=== PATIENT | female | born 1955 | race Caucasian/White ===

== ENCOUNTER 2016-07-04 13:08 | Emergency (ER) | payer BC ==
[~2016-07-04] VITALS: Ht 162.6 cm; Wt 71.7 kg
[~2016-07-04 13:08] MED LIST: ALPR-411 PO; BNT10 PO; CALC500C70 PO; CLID5CAP PO; DILT120C68 PO; IBUP-1050 PO; LORA-741 PO; MULT-506 PO; OMEG10007 PO; ORPH100T PO; VITBC PO
[2016-07-04 13:10] VITALS: Ht 162.6 cm; Wt 71.7 kg
[2016-07-04] MEDS ORDERED: ADENOSINE IV SOLN 3 MG/ML 2 ML VIAL IV ONE ×2 (13:17→13:20)
[2016-07-04 13:20] VITALS: O2SAT 98
--- NOTE | 2016-07-04 13:32 | EMERGENCY ROOM VISIT NOTE ---
History Report prepared by Black: Hemalatha Santana Under the Supervision of: Dr. Bruno Pearson D.O. First contact with patient: 13:20 Chief Complaint: TACHYCARDIA Stated Complaint: HEART RACING AFTER DIZZY SPELL Nursing Triage Summary: Dizzy spell at work around 1140. Then heart started racing, about 160. Slight SOB and left shoulder pain. Has happened 2 years ago but it didnt last this long. History of Present Illness The patient is a 61 year old female who presents to the Emergency Room with complaints of sudden tachycardia that began around 1145 this morning. The patient states that she was at work today when she suddenly became dizzy. She states that she suddenly had the tachycardia following. The patient states that her dizzy spell felt that she would pass out with standing. She states that she tried taking her pulse, noting that she couldn't feel it at first, but states that she noticed that her heart was racing. 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 Today she notes chest pain radiating across her chest, left shoulder pain, and shortness of breath. She rates her discomfort as a 3/10 in severity. The patient additionally notes palpitations today. She denies anything this severe in the past, but states that a couple months ago she had a similar episode that subsided on it's own. The patient notes a history of hypertension noting that she is on Cardizem. She denies any history of PEs or DVTs. The patient denies any family history of WPW. She states that she drinks 3 caffeinated drinks per day, and denies any increase recently. The patient denies any drug or tobacco use, but notes that she drinks alcohol occasionally. Source of History: patient Onset: 1145 this morning Position: other (global) Symptom Intensity: 3/10 Quality: other (tachycardia) Timing: other (persistent) Associated Symptoms: + SOB, + chest pain Note: Associated Symptoms: dizziness, left shoulder pain, palpitations. Review of Systems See above for pertinent positives & negatives. A total of 10 systems reviewed and were otherwise negative. Past Medical & Surgical Medical Problems: (1) Hypertension Family History FH: cancer FH: gallbladder disease FHx: heart disease Hypertension Social History Smoking Status: Former Smoker Alcohol Use: none Drug Use: none Marital Status: Housing Status: lives with family Occupation Status: employed Current/Historical Medications Scheduled Aspirin (Aspirin Chewable), 81 MG PO DAILY Calcium/Vitamin D (Os-Rboert 500 Plus D), 1 TAB PO Q2D Chlordiazepoxide/Clidinium (Librax 5MG/2.5MG), 1 CAP PO Q6 Diltiazem Hcl Ext Rel (Tiazac), 120 MG PO DAILY Fish Oil (Enfield-3), 1 CAP PO DAILY Metoprolol Succinate (Toprol Xl), 1 TAB PO DAILY Multivitamin (Multivitamin), 1 TAB PO Q2D Orphenadrine Citrate (Norflex), 100 MG PO HS PRN Vitamin B Complex (Vitamin B Complex), 1 TABLET PO Q2D Scheduled PRN Alprazolam (Xanax), 0.25 MG PO DAILY PRN for as directed Dicyclomine Hcl (Bentyl *), 10 MG PO Q6 PRN Ibuprofen (Advil), 200 MG PO HS PRN Lorazepam (Ativan), 0.5 MG PO Q6H PRN for as directed Allergies Coded Allergies: Penicillins (Verified Allergy, Intermediate, HIVES, 07/04/16) Physical Exam Vital Signs Date Time Temp Pulse Resp B/P Pulse Ox O2 Delivery O2 Flow Rate FiO2 07/04/16 15:53 93 15 96 07/04/16 15:48 87 19 96 07/04/16 15:43 92 16 96 07/04/16 15:38 88 15 92 07/04/16 15:33 91 29 92 07/04/16 15:28 91 19 94 07/04/16 15:23 88 17 96 07/04/16 15:18 91 16 92 07/04/16 15:13 94 18 97 07/04/16 15:08 97 16 93 07/04/16 14:58 93 15 93 07/04/16 14:53 98 13 93 07/04/16 14:48 91 13 95 07/04/16 14:43 92 16 97 07/04/16 14:38 92 14 95 07/04/16 14:33 87 13 96 07/04/16 14:28 91 21 94 07/04/16 14:23 91 15 98 07/04/16 14:21 94 18 125/78 95 Room Air 07/04/16 14:20 125/78 07/04/16 14:13 93 13 07/04/16 14:08 89 15 07/04/16 14:03 87 9 07/04/16 13:58 90 10 07/04/16 13:53 87 17 97 07/04/16 13:48 89 27 97 07/04/16 13:43 89 15 124/85 95 07/04/16 13:38 91 19 99 07/04/16 13:33 95 29 07/04/16 13:30 94 18 133/84 98 Room Air 07/04/16 13:29 94 07/04/16 13:28 95 20 133/84 07/04/16 13:23 189 07/04/16 13:23 193 21 07/04/16 13:20 98 07/04/16 13:18 133/100 07/04/16 13:13 96 Room Air 07/04/16 13:10 36.3 180 18 127/94 96 Room Air Physical Exam GENERAL: Patient is well appearing and in no acute distress. HEENT: No acute trauma, normocephalic atraumatic, mucous membranes moist, no nasal congestion, no scleral icterus. NECK: No stridor, no adenopathy, no meningismus, trachea is midline. LUNGS: No dyspnea. Clear to auscultation and equal bilaterally. No wheeze, no rhonchi. HEART: Tachycardic rate and regular rhythm. No murmurs, rubs, gallops appreciated. ABDOMEN: Soft, nontender, bowel sounds positive, no masses appreciated, no peritonitis. BACK: No midline tenderness, no CVA tenderness EXTREMITIES: Normal motion all extremities, no cyanosis, no edema. NEUROLOGIC: Alert and oriented, no acute motor or sensory deficits, no focal weakness, cranial nerves grossly intact. SKIN: No rash, no jaundice, no diaphoresis. Medical Decision & Procedures ER Provider Diagnostic Interpretation: X ray results and stated below per my interpretation and radiologist interpretation. Other radiology results and stated below per my review and radiologist interpretation: CHEST 2 VIEWS ROUTINE CLINICAL HISTORY: Tachycardia, dizziness, cough. COMPARISON STUDY: 07/26/2013 FINDINGS: The cardiac and mediastinal contours are normal. There is no evidence of focal pulmonary consolidation. There is no evidence of failure. No pleural effusions are visualized.[ IMPRESSION: No active disease in the chest. Electronically signed by: Manuel Burk M.D. 07/04/2016 4:12 PM Dictated Date/Time: 07/04/2016 4:11 PM Laboratory Results 07/04/16 13:20 Red Blood Count 4.69, Mean Corpuscular Volume 92.3, Mean Corpuscular Hemoglobin 31.6, Mean Corpuscular Hemoglobin Concent 34.2, Mean Platelet Volume 10.0, Neutrophils (%) (Auto) 61.1, Lymphocytes (%) (Auto) 32.4, Monocytes (%) (Auto) 4.7, Eosinophils (%) (Auto) 1.0, Basophils (%) (Auto) 0.5, Neutrophils # (Auto) 6.46, Lymphocytes # (Auto) 3.43, Monocytes # (Auto) 0.50, Eosinophils # (Auto) 0.11, Basophils # (Auto) 0.05 07/04/16 13:20 Test 07/04/16 13:20 White Blood Count 10.58 K/uL (4.8-10.8) Red Blood Count 4.69 M/uL (4.2-5.4) Hemoglobin 14.8 g/dL (12.0-16.0) Hematocrit 43.3 % (37-47) Mean Corpuscular Volume 92.3 fL (80-100) Mean Corpuscular Hemoglobin 31.6 pg (25-34) Mean Corpuscular Hemoglobin Concent 34.2 g/dl (32-36) Platelet Count 314 K/uL (130-400) Mean Platelet Volume 10.0 fL (7.4-10.4) Neutrophils (%) (Auto) 61.1 % Lymphocytes (%) (Auto) 32.4 % Monocytes (%) (Auto) 4.7 % Eosinophils (%) (Auto) 1.0 % Basophils (%) (Auto) 0.5 % Neutrophils # (Auto) 6.46 K/uL (1.4-6.5) Lymphocytes # (Auto) 3.43 K/uL (1.2-3.4) Monocytes # (Auto) 0.50 K/uL (0.11-0.59) Eosinophils # (Auto) 0.11 K/uL (0-0.5) Basophils # (Auto) 0.05 K/uL (0-0.2) RDW Standard Deviation 43.3 fL (36.4-46.3) RDW Coefficient of Variation 12.9 % (11.5-14.5) Immature Granulocyte % (Auto) 0.3 % Immature Granulocyte # (Auto) 0.03 K/uL (0.00-0.02) Anion Gap 14.0 mmol/L (3-11) Est Creatinine Clear Calc Drug Dose 64.4 ml/min Estimated GFR () 81.6 Estimated GFR (Non- 70.4 BUN/Creatinine Ratio 24.7 (10-20) Calcium Level 9.7 mg/dl (8.5-10.1) Phosphorus Level 4.1 mg/dl (2.5-4.9) Magnesium Level 2.1 mg/dl (1.8-2.4) Total Bilirubin 0.6 mg/dl (0.2-1) Direct Bilirubin 0.1 mg/dl (0-0.2) Aspartate Amino Transf (AST/SGOT) 43 U/L (15-37) Alanine Aminotransferase (ALT/SGPT) 61 U/L (12-78) Alkaline Phosphatase 94 U/L (45-117) Troponin I 0.015 ng/ml (0-0.045) Total Protein 7.7 gm/dl (6.4-8.2) Albumin 4.5 gm/dl (3.4-5.0) Lipase 189 U/L (73-393) Thyroid Stimulating Hormone (TSH) 1.170 uIu/ml (0.300-4.500) Thyroxine (T4) 9.5 mcg/dl (4.5-10.9) Laboratory results as reviewed by me. Medications Administered Medications (Trade) Dose Ordered Sig/Nancy Route Start Time Stop Time Status Last Admin Dose Admin Adenosine 18 mg 18 mg STK-MED ONCE IV 07/04/16 13:17 07/04/16 13:19 DC 07/04/16 13:27 18 MG Sodium Chloride (Nss 1000ml) 1,000 ml @ 999 mls/hr Q1H1M ONCE IV 07/04/16 14:15 07/04/16 15:15 DC 07/04/16 13:20 999 MLS/HR ECG Indication: tachycardia Rate (beats per minute): 190 Rhythm: SVT Change: Repeat EKG: Normal Sinus Rhythm, 90 beats per minute, normal intervals, normal axis, no ST segment changes. ED Course 1317: The patient was evaluated in room A1. A complete history and physical exam was performed. 1320: Ordered Adenosine 6 mg IV. 1326: The adenosine was administered at this time. 1415: Ordered Sodium Chloride 1000 ml @ 999 mls/hr IV. 1435: I discussed the patients case with Dr. Sanford, Cardiology. He said that the patient can follow up with him as an outpatient. 1630: I reevaluated the patient and she is resting comfortably. I discussed the exam findings with her and I discussed the treatment plan. She verbalized complete understanding and agreement. She is ready to go home. Medical Decision Differential diagnosis: Etiologies such as cardiac ischemia, aortic dissection, pulmonary embolism, pneumonia, pneumothorax, musculoskeletal, infections, pericarditis, myocarditis , esophageal rupture, gastrointestinal, as well as others were entertained. Patient is a 61-year-old female with a significant past medical history for hypertension and palpitations which she was told they were PVCs. She presents today with sudden onset dizziness when she stood up from her desk and had sudden palpitations which continued until her presentation here. No family history of sudden cardiac , heart arrhythmia, nor SVT. She denies not smoke, does occasionally drinks alcohol, has approximately 3 caffeinated drinks a day, does not use illicit drugs nor sympathomimetics. Initial EKG revealed an SVT with a heart rate into the 180s to 190s, she was immediately treated with 6 mg of adenosine and had conversion into normal sinus rhythm. I discussed her case with Dr. Sanford of [facility] cardiology. He instructed me to have her follow-up with Dr. Holguin. Additionally I have started her on 25 mg Toprol-XL for palpitations. At the time of my evaluation and dictation the thyroid function test are still out standing, I have instructed her to follow up with her primary care provider regarding the results of these tests. Consults Time Called: 1430 Consulting Physician: Dr. Sanford, Cardiology Returned Call: [phone] I discussed the patients case with Dr. Sanford, Cardiology. He said that the patient can follow up with him as an outpatient. Impression Primary Impression: SVT (supraventricular tachycardia) Critical Care I have personally spent greater than 35 minutes of critical care time in the direct management of this patient. This includes bedside care, interpretation of diagnostic studies, and testing, discussion with consultants, patient, and family members, and other required patient management activities. This 35 minutes is in excess of all separately billable procedures. Scribe Attestation The scribe's documentation has been prepared under my direction and personally reviewed by me in its entirety. I confirm that the note above accurately reflects all work, treatment, procedures, and medical decision making performed by me. Departure Information Dispostion Home / Self-Care Prescriptions Metoprolol Succinate (TOPROL XL) 25 Mg Tabcr 1 TAB PO DAILY for 30 Days, #30 TAB 5 Refills Prov: Bruno Pearson, D.O. 07/04/16 Referrals Jeb Carolina M.D. (PCP) Forms HOME CARE DOCUMENTATION FORM, IMPORTANT VISIT INFORMATION, WORK / SCHOOL INSTRUCTIONS Patient Instructions Treatment for Supraventricular Tachycardia SVT, Understanding Supraventricular Tachycardia SVT Additional Instructions Follow-up with [facility] physician group cardiology for further evaluation and treatment of the SVT. Return for severe chest pain, shortness of breath, passing out, or any other concerns. You been given a prescription for metoprolol 25 mg extended release. This will treat hypertension as well as be used to prevent arrhythmias. Follow-up with her primary care doctor regarding the results of your thyroid function tests.
[2016-07-04] MEDS ORDERED: ASPCH81X PO (13:50)
[2016-07-04] MEDS ORDERED: SODIUM CHLORIDE 0.9% 1000ML 1,000 ML IV ONE (14:15)
[2016-07-04 14:22] LABS: BASO % 0.5 %; BASO ABS # 0.05 K/uL (0-0.2); COMPLETE YES; HEMATOCRIT 43.3 % (37-47); IG% 0.3 %; LYMPH % 32.4 %; LYMPH ABS # 3.43 K/uL (1.2-3.4); MEAN CELL VOLUME 92.3 fL (80-100); MEAN CORPUSCULAR HEMOGLOBIN 31.6 pg (25-34); MEAN CORPUSCULAR HGB CONC 34.2 g/dl (32-36); MONO % 4.7 %; NEUT % 61.1 %; PLATELET COUNT 314 K/uL (130-400); RED BLOOD COUNT 4.69 M/uL (4.2-5.4); WHITE BLOOD COUNT 10.58 K/uL (4.8-10.8)
[2016-07-04 14:29] LABS: BUN/CREATININE RATIO 24.7 (10-20); CALCIUM 9.7 mg/dl (8.5-10.1); CREATININE 0.88 mg/dl (0.60-1.20); MAGNESIUM 2.1 mg/dl (1.8-2.4); POTASSIUM 3.5 mmol/L (3.5-5.1)
[2016-07-04 14:32] LABS: PHOSPHORUS 4.1 mg/dl (2.5-4.9)
[2016-07-04] MEDS ORDERED: METO25TA3 PO (15:35)
--- NOTE | 2016-07-04 16:13 | DIAGNOSTIC IMAGING REPORT ---
CHEST 2 VIEWS ROUTINE CLINICAL HISTORY: Tachycardia, dizziness, cough. COMPARISON STUDY: 07/26/2013 FINDINGS: The cardiac and mediastinal contours are normal. There is no evidence of focal pulmonary consolidation. There is no evidence of failure. No pleural effusions are visualized.[ IMPRESSION: No active disease in the chest. Electronically signed by: Manuel Burk M.D. 07/04/2016 4:12 PM Dictated Date/Time: 07/04/2016 4:11 PM
[2016-07-04 16:14] LABS: THYROID STIMULATING HORMONE 1.17 uIu/ml (0.300-4.500)
[2016-07-04 17:03] VITALS: BP 125/78; PULSE 88; TEMP 36.3; O2SAT 96
== END 2016-07-04 17:05 | disposition home or self-care (01) ==
LOC: C.EDB 13:10
DX: I47.1 Supraventricular tachycardia (principal); I10 Essential (primary) hypertension; Z82.49 Family history of ischemic heart disease and other diseases of the circulatory system; Z87.891 Personal history of nicotine dependence; Z79.82 Long term (current) use of aspirin; Z79.899 Other long term (current) drug therapy

== ENCOUNTER → 2016-07-23 | Outpatient (CLI) | payer BC ==
[~2016-07-23] MED LIST changes: +ASPCH81X PO; +METO25TA3 PO
--- NOTE | 2016-07-23 16:53 | MAMMOGRAPHY REPORT ---
BILATERAL DIGITAL SCREENING MAMMOGRAM WITH CAD: 07/23/2016 TECHNIQUE: Current study was also evaluated with a Computer Aided Detection (CAD) system. Bilatera l CC and MLO views were obtained. COMPARISON: Comparison is made to exams dated: 07/19/2015 mammogram, 07/17/2014 mammogram, 07/08/2012 m ammogram, 07/02/2010 mammogram, 07/14/2013 mammogram, and 07/03/2011 mammogram - [facility] enter. BREAST COMPOSITION: The tissue of both breasts is heterogeneously dense, which may obscure small ma sses. FINDINGS: No suspicious masses, calcifications, or areas of architectural distortion are noted in e ither breast. There has been no significant interval change compared to prior exams. Scattered bilat eral benign-appearing calcifications are not significantly changed. Small benign-appearing mass in the right superior breast on the MLO view is stable. IMPRESSION: ACR BI-RADS CATEGORY 2: BENIGN There is no mammographic evidence of malignancy. A 1 year screening mammogram is recommended. The p atient will receive written notification of the results. Approximately 10% of breast cancers are not detected with mammography. A negative mammographic repor t should not delay biopsy if a clinically suggestive mass is present. Belinda Deras M.D. ah/:07/23/2016 16:48:29 [employer]: Melisa MCKEON)(M), [facility] letter sent: Normal 1/2 BI-RADS Code: ACR BI-RADS Category 2: Benign
== END | disposition home or self-care (01) ==
LOC: C.MAMM 16:25
PROVIDERS: ATTEND Obstetrics & Gynecology
DX: Z12.31 Encounter for screening mammogram for malignant neoplasm of breast (principal)

== ENCOUNTER → 2017-05-20 | Outpatient (CLI) | payer BC ==
[2017-05-20 15:39] LABS: BASO % 0.6 %; BASO ABS # 0.03 K/uL (0-0.2); COMPLETE YES; EOS % 1.7 %; HEMATOCRIT 42.9 % (37-47); IG% 0.2 %; LYMPH % 34.4 %; LYMPH ABS # 1.87 K/uL (1.2-3.4); MEAN CELL VOLUME 95.1 fL (80-100); MEAN CORPUSCULAR HEMOGLOBIN 31.7 pg (25-34); MEAN CORPUSCULAR HGB CONC 33.3 g/dl (32-36); MEAN PLATELET VOLUME 9.9 fL (7.4-10.4); MONO % 6.4 %; NEUT % 56.7 %; PLATELET COUNT 276 K/uL (130-400); RED BLOOD COUNT 4.51 M/uL (4.2-5.4); WHITE BLOOD COUNT 5.44 K/uL (4.8-10.8)
[2017-05-20 15:47] LABS: ALT/SGPT 42 U/L (12-78); BLOOD UREA NITROGEN 18 mg/dl (7-18); BUN/CREATININE RATIO 22.1 (10-20); CALCIUM 9.2 mg/dl (8.5-10.1); CARBON DIOXIDE 29 mmol/L (21-32); CHLORIDE 105 mmol/L (98-107); CHOLESTEROL 219 mg/dl (0-200); CREATININE 0.82 mg/dl (0.60-1.20); GLUCOSE 94 mg/dl (70-99); SODIUM 138 mmol/L (136-145); TRIGLYCERIDES 196 mg/dl (0-150); VERY LOW DENSITY LIPOPROT CALC 39 mg/dl
[2017-05-20 15:56] LABS: ALB/GLOB RATIO 1.4 (0.9-2); ALKALINE PHOSPHATASE 86 U/L (45-117); AST/SGOT 28 U/L (15-37); HDL CHOLESTEROL 73 mg/dl; LDL CHOLESTEROL CALCULATED 107 mg/dl
[2017-05-20 16:19] LABS: LYME DISEASE AB IGM NEG (NEG)
[2017-05-20 16:20] LABS: LYME DISEASE AB IGG NEG (NEG)
[2017-05-21 06:38] LABS: ESTIMATED AVERAGE GLUCOSE 117 mg/dl; HA1C FLAG Normal (Normal)
== END | disposition home or self-care (01) ==
LOC: C.LABBC 09:22
PROVIDERS: ATTEND Internal Medicine
DX: Z00.00 Encounter for general adult medical examination without abnormal findings (principal); K58.9 Irritable bowel syndrome, unspecified; I10 Essential (primary) hypertension; E78.5 Hyperlipidemia, unspecified; R73.01 Impaired fasting glucose; I47.1 Supraventricular tachycardia; E04.1 Nontoxic single thyroid nodule; Z11.59 Encounter for screening for other viral diseases; M79.1 Myalgia

== ENCOUNTER → 2017-07-29 | Outpatient (CLI) | payer BC ==
[~2017-07-29] MED LIST changes: -METO25TA3 PO; +METO25TA4 PO
--- NOTE | 2017-07-29 15:13 | MAMMOGRAPHY REPORT ---
BILATERAL DIGITAL SCREENING MAMMOGRAM TOMOSYNTHESIS WITH CAD: 07/29/2017 CLINICAL HISTORY: Routine screening. Patient has no complaints. TECHNIQUE: Breast tomosynthesis in addition to standard 2D mammography was performed. Current study was also evaluated with a Computer Aided Detection (CAD) system. COMPARISON: Comparison is made to exams dated: 07/23/2016 mammogram, 07/19/2015 mammogram, 07/17/2014 ma mmogram, 07/14/2013 mammogram, 07/08/2012 mammogram, and 07/03/2011 mammogram - [facility] ter. BREAST COMPOSITION: The tissue of both breasts is heterogeneously dense, which may obscure small mas ses. FINDINGS: A subcentimeter circumscribed mass in the upper outer posterior right breast is stable in s ize dating back to at least 07/17/2014, therefore considered benign given long-term stability. No ne w suspicious mass, architectural distortion or cluster of microcalcifications is seen. IMPRESSION: ACR BI-RADS CATEGORY 1: NEGATIVE There is no mammographic evidence of malignancy. A 1 year screening mammogram is recommended. The pa tient will receive written notification of the results. Approximately 10% of breast cancers are not detected with mammography. A negative mammographic report should not delay biopsy if a clinically suggestive mass is present. Naida Palma M.D. ay/:07/29/2017 10:48:04 [employer]: Marie Candelario, [facility] letter sent: Normal 1/2 BI-RADS Code: ACR BI-RADS Category 1: Negative
== END | disposition home or self-care (01) ==
LOC: C.MAMM 10:24
PROVIDERS: ATTEND Obstetrics & Gynecology
DX: Z12.31 Encounter for screening mammogram for malignant neoplasm of breast (principal)